=== PATIENT | male | born 1970 ===

== ENCOUNTER 2020-09-18 05:48 | Day surgery (SDC) | payer OTHER ==
[~2020-09-18 05:48] MED LIST: AVAPRO150 MG PO
== END 2020-09-18 16:40 | disposition home or self-care (01) ==
LOC: CIR.AMB 05:48
PROVIDERS: ATTEND Surgery
DX: K64.8 Other hemorrhoids (principal); K62.82 Dysplasia of anus; Z20.822 Contact with and (suspected) exposure to COVID-19